=== PATIENT | male | born 1935 | race Caucasian/White ===

== ENCOUNTER 2019-09-10 14:37 | Inpatient (IN) | payer MEDICARE ==
[~2019-09-10] VITALS: Ht 175.3 cm; Wt 95.3 kg
--- OUTSIDE RECORDS SUMMARY | 2019-09-10 14:40 | XMS REPORT ---
Author Author [facility] Address Unknown Phone Unavailable Care Team Providers Care Card Maker Name Role Phone Unavailable Unavailable Payers Payer Name Policy Type Policy Number Effective Date Expiration Date Problems This patient has no known problems. Allergies, Adverse Reactions, Alerts Allergy Name Allergy Type Status Severity Reaction(s) Onset Date Inactive Date Treating Clinician Comments monosodium glutamate DA Active SV 2018-10-14 00:00:00 Penicillins DA Active MO 2010-04-02 00:00:00 Medications This patient has no known medications.
--- NOTE | 2019-09-10 15:10 | Diagnostic Imaging Report ---
Exam: Head CT without contrast History: Stroke symptoms, CVA Comparison studies: Head CT of is unavailable on the PACS for comparison the time of dictation. Technique: Axial images were obtained from the skull base to the vertex. Coronal and sagittal images reconstructed from the axial data. Dose modulation, iterative reconstruction, and/or weight based adjustment of the mA/kV was utilized to reduce the radiation dose to as low as reasonably achievable. Radiation dose: Total DLP: 832 mGy*cm. Estimated effective dose: DLP x 0.015 Intravenous contrast: None Findings: Scalp: No abnormalities. Bones: No fractures, blastic or lytic lesions. Brain sulci: Mildly prominent. Ventricles: Mild compensatory dilatation. No hydrocephalus. Extra-axial spaces: No masses, no fluid collection. Parenchyma: No abnormal densities. No mass, acute hemorrhage or cortical vascular insults. A few scattered hypodensities in the supratentorial white matter are nonspecific but most compatible with chronic small vessel ischemic changes. Sellar/suprasellar region: No abnormalities. Craniocervical junction: Patent foramen magnum. No Chiari one malformation. Incidental findings: Bilateral lens replacements related to previous cataract surgery. Atherosclerotic calcifications in the carotid siphons. IMPRESSION: No acute intracranial abnormalities. Chronic findings: 1. Mild age-related parenchymal volume loss. 2. Mild microvascular ischemic changes. Signed by: Dr. Jonathan Urena M.D. on 09/10/2019 3:06 PM
[2019-09-10 15:37] LABS: BASOPHILS % 0.7 % (0.0-1.0); EOSINOPHILS # (AUTO) 0.1 (0.0-0.4); EOSINOPHILS % 1.1 % (0.0-6.0); HEMOGLOBIN 16.2 g/dL (14.0-18.0); LYMPHOCYTES # (AUTO) 0.8 (1.0-3.2); LYMPHOCYTES % 14.4 % (18.0-39.1); MEAN CORPUSCULAR HEMOGLOBIN 31.7 pg (28-32); MEAN CORPUSCULAR HGB CONC 33.8 g/dL (31-35); MEAN CORPUSCULAR VOLUME 93.9 fL (81-99); MONOCYTES # (AUTO) 0.9 (0.2-0.8); NEUTROPHILS # (AUTO) 3.6 (2.1-6.9); NEUTROPHILS % 66.4 % (38.7-80.0); PLATELET COUNT 175 x10e3/uL (140-360); RED BLOOD COUNT 5.11 x10e6/uL (4.3-5.7); RED CELL DISTRIBUTION WIDTH 13.4 % (11.7-14.4)
[2019-09-10] MEDS ORDERED: FAMOTIDINE 20 MG/2 ML VIAL IV ONE (15:43)
[2019-09-10] MEDS ORDERED: SODIUM CHLORIDE 0.9% 1000ML 1,000 ML IV STA ×2 (15:43)
[2019-09-10] MEDS ORDERED: ASPIRIN 81 MG CHEW TAB PO ONE ×2 (15:43→15:46)
[2019-09-10 15:44] LABS: INR 1.07; PROTHROMBIN TIME 14.4 seconds (11.9-14.5)
[2019-09-10] MEDS ORDERED: FOLIC ACID 5 MG/ML VIAL IV ONE (15:45)
--- NOTE | 2019-09-10 15:45 | Diagnostic Imaging Report ---
Chest, PA and lateral. History: Stroke symptoms. Comparison: None available. Discussion: The cardiomediastinal silhouette and pulmonary vasculature are within normal limits. The aorta has a tortuous appearance. The lungs are clear without evidence of consolidation or effusion. A calcified granuloma is present in the right midlung zone. There is no acute osseous abnormalities. IMPRESSION: No radiographic evidence of acute cardiopulmonary abnormality. Signed by: Grady Flores MD on 09/10/2019 3:42 PM
[2019-09-10 15:54] LABS: ALBUMIN 3.7 g/dL (3.5-5.0); ALBUMIN/GLOBULIN RATIO 1.3 (0.8-2.0); ANION GAP 13.3 mmol/L (8-16); CALCIUM 9.2 mg/dL (8.4-10.2); CREATININE, SERUM 1.7 mg/dL (0.72-1.25); POTASSIUM 4.3 mmol/L (3.5-5.1)
[2019-09-10] MEDS ORDERED: SODIUM CHLORIDE 0.9% 1000ML 1,000 ML IV SCH (16:00)
[2019-09-10] MEDS ORDERED: FAMOTIDINE 20 MG/2 ML VIAL IV SCH ×2 (16:00→17:00)
[2019-09-10] MEDS ORDERED: FOLIC ACID 5 MG/ML VIAL IV SCH (16:00)
[2019-09-10 16:01] LABS: CREATINE KINASE MB 4.1 ng/mL (0-5.0)
[2019-09-10 16:02] LABS: MAGNESIUM 1.9 MG/DL (1.3-2.1)
[2019-09-10 16:22] LABS: THYROID STIMULATING HORMONE 6.066 uIU/mL (0.350-4.940)
[2019-09-10 16:49] LABS: BILIRUBIN,URINE NEGATIVE (NEGATIVE); CLARITY,URINE SL CLOUDY (CLEAR); COLOR,URINE YELLOW (YELLOW); KETONES,URINE NEGATIVE (NEGATIVE); LEUKOCYTE ESTERASE ,URINE TRACE (NEGATIVE); NITRITE,URINE NEGATIVE (NEGATIVE); PROTEIN,URINE DIPSTICK NEGATIVE (NEGATIVE); URINE UROBILINOGEN 0.2 mg/dL (0.2 - 1)
[2019-09-10] MEDS ORDERED: APIXAB 2.5 MG TABLET PO SCH (17:00)
[2019-09-10] MEDS ORDERED: FOLIC ACID MDV 1 MG in SODIUM CHLORIDE 0.9% 50ML 50 ML IV SCH (17:00)
[2019-09-10 17:02] LABS: WBC,URINE (MAN) 0-5 /HPF (0-5)
--- NOTE | 2019-09-10 17:07 | Diagnostic Imaging Report ---
EXAMINATION: MRI of the brain without contrast. HISTORY: Stroke symptoms, evaluate for acute cerebrovascular accident COMPARISON: Head CT 09/10/[address] 04/26/2017 TECHNIQUE: Sagittal T2; axial DWI, T2, FLAIR, T1-IR, T2 gradient echo; coronal FLAIR. FINDINGS: Parenchyma: 1. Few scattered and mildly confluent periventricular white matter T2 and FLAIR hyperintense foci, most likely nonspecific chronic microvascular ischemic changes. 2. No mass, hemorrhage, acute or chronic infarcts. Skull: Unremarkable. Vessels: Expected flow voids present in the major arteries and dural sinuses. Extra-axial spaces: No abnormal signal intensity or mass effect. Brain volume: Within normal limits for age. Ventricles: No hydrocephalus or displacement. Foramen magnum: Unremarkable. Sella: Unremarkable. Paranasal / mastoid sinuses: No significant inflammatory disease. IMPRESSION: 1. No acute infarct. 2. Mild chronic microvascular ischemic changes, stable compared to prior studies. Signed by: Dr. Alexa Ríos M.D. on 09/10/2019 5:03 PM
--- NOTE | 2019-09-10 17:20 | NUR ---
SWALLOW TEST PERFORMED WITH PT PRIOR TO ADMINISTRATION OF ASA 81MG.
[2019-09-10] MEDS ORDERED: TERAZOSIN HCL1 MG PO (17:26)
[2019-09-10] MEDS ORDERED: CELEBREX100 MG PO (17:28)
[2019-09-10] MEDS ORDERED: DIGOXIN125 MCG PO (17:28)
[2019-09-10] MEDS ORDERED: ELIQUIS2.5 MG (17:28)
[2019-09-10] MEDS ORDERED: ATORVASTATIN CA20 MG PO (17:28)
[2019-09-10] MEDS ORDERED: LABETALOL HCL 5 MG/ML 20ML VIAL IV STA (18:03)
[2019-09-10] MEDS ORDERED: LABETALOL HCL 100 MG TAB PO ONE (18:15)
[2019-09-10] MEDS ORDERED: LABETALOL HCL 5 MG/ML 20ML VIAL IV ONE ×2 (18:15→19:00)
[2019-09-10 20:48] VITALS: BP 162/97
[2019-09-11] MEDS ORDERED: ASPIRIN 81 MG ENTERIC COATED PO SCH (09:00)
--- NOTE | 2019-09-12 03:30 | Discharge Summary ---
PRIMARY CARE DOCTOR: Saravanan Rodriguez MD FINAL DIAGNOSIS: Transient ischemic attack. SECONDARY DIAGNOSES: 1. Atrial fibrillation. 2. Stage 3 chronic kidney disease. 3. Dyslipidemia. CONSULTANTS: None. PROCEDURES/STUDIES PERFORMED: CT and brain MRI did not show any acute stroke. HISTORY: Per H and P. HOSPITAL COURSE: I had a very long conversation with both the patient and his at the bedside. The patient is on appropriate medication, which is Eliquis 2.5 mg twice a day for his atrial fibrillation and stroke prophylaxis. Dosage is reduced due to the fact that his creatinine is greater than 1.5 and his age is greater than 80 years old. However, despite chronically he has failed Eliquis, the patient reports being compliant with it. Interestingly, his PT and PTT are normal which potentially is suggesting that he is somewhat resistant to Eliquis, despite being on the appropriate dosage. Of note, his hemoglobin is also normal at 16. Again, I had a very long conversation with both of them. Currently, the patient is back to his baseline. Therefore, the patient can be discharged home. The patient is aware that if symptoms comes back that he needs to return to the emergency room. However, potentially even if he comes back within the tPA window, tPA is likely contraindicated since the fact that he is on Eliquis. At this time, I am proposing increasing his Eliquis dose to 5 mg in the morning and 2.5 mg at night. They understand that this is an off-label use. The patient will follow up with his curing machine operator, Dr. Kramer next day to get his opinion. CONDITION ON DISCHARGE: Improved. DISCHARGE MEDICATIONS: Please see medication reconciliation form. MD SCOOBY Aguilar/MONIKA /[id number] cc: [facility]
== END 2019-09-10 21:05 | disposition home or self-care (01) | DRG 69 ==
LOC: ER 14:37 → ERHOLD 15:49
PROVIDERS: ADMIT Internal Medicine; ATTEND Internal Medicine
DX: G45.9 Transient cerebral ischemic attack, unspecified (principal); I48.91 Unspecified atrial fibrillation; E78.5 Hyperlipidemia, unspecified; Z79.01 Long term (current) use of anticoagulants; I12.9 Hypertensive chronic kidney disease with stage 1 through stage 4 chronic kidney disease, or unspecified chronic kidney disease; N18.3 Chronic kidney disease, stage 3 (moderate)
CPT/HCPCS: 36415; 70450; 70551; 71046; 80053; 80162; 81001; 82550; 82553; 83690; 83735; 83880; 84443; 84484; 85025; 85610; 85730; 93005; 99284; J7030

== ENCOUNTER → 2022-04-01 | Day surgery (SDC) | payer MEDICARE ==
[2022-03-29 13:06] LABS: BASOPHILS # (AUTO) 0.1 (0.0-0.1); BASOPHILS % 0.8 % (0.0-1.0); EOSINOPHILS # (AUTO) 0.3 (0.0-0.4); EOSINOPHILS % 3.8 % (0.0-6.0); HEMATOCRIT 46.4 % (38.2-49.6); HEMOGLOBIN 15.1 g/dL (14.0-18.0); LYMPHOCYTES # (AUTO) 1.2 (1.0-3.2); LYMPHOCYTES % 15.8 % (18.0-39.1); MEAN CORPUSCULAR HEMOGLOBIN 32.1 pg (28-32); MEAN CORPUSCULAR HGB CONC 32.5 g/dL (31-35); MEAN CORPUSCULAR VOLUME 98.7 fL (81-99); MONOCYTES # (AUTO) 0.9 (0.2-0.8); MONOCYTES % 11.9 % (4.4-11.3); NEUTROPHILS % 67.4 % (38.7-80.0); PLATELET COUNT 212 x10e3/uL (140-360); RED CELL DISTRIBUTION WIDTH 13.5 % (11.7-14.4)
[~2022-04-01] MED LIST: ATORVASTATIN CA20 MG PO; CELEBREX100 MG PO; COREG3.125 MG PO; DIGOXIN125 MCG PO; ELIQUIS2.5 MG; LIDOCAINE HCL 2% LOCAL INJ 5 ML SDV VIAL INJ ONE; LOSARTAN POTASS25 MG PO; PREVAGEN PO; PROPOFOL IV EMULSION 10 MG/ML 20 ML VIAL ONE; TERAZOSIN HCL1 MG PO
[2022-04-01 14:05] VITALS: BP 143/77
== END | disposition home or self-care (01) ==
LOC: OR 10:35
PROVIDERS: ATTEND Internal Medicine Gastroenterology
DX: K29.70 Gastritis, unspecified, without bleeding (principal); D12.0 Benign neoplasm of cecum; D12.2 Benign neoplasm of ascending colon; D12.4 Benign neoplasm of descending colon; K29.80 Duodenitis without bleeding; K26.9 Duodenal ulcer, unspecified as acute or chronic, without hemorrhage or perforation; K20.90 Esophagitis, unspecified without bleeding; K44.9 Diaphragmatic hernia without obstruction or gangrene; K22.89 Other specified disease of esophagus; K59.09 Other constipation; K57.30 Diverticulosis of large intestine without perforation or abscess without bleeding; K64.8 Other hemorrhoids; I10 Essential (primary) hypertension; E78.5 Hyperlipidemia, unspecified; I25.10 Atherosclerotic heart disease of native coronary artery without angina pectoris; I48.91 Unspecified atrial fibrillation; Z88.0 Allergy status to penicillin; Z91.048 Other nonmedicinal substance allergy status; Z01.810 Encounter for preprocedural cardiovascular examination; Z01.812 Encounter for preprocedural laboratory examination; Z20.822 Contact with and (suspected) exposure to COVID-19; Z79.02 Long term (current) use of antithrombotics/antiplatelets; Z79.899 Other long term (current) drug therapy
CPT/HCPCS: 36415; 43239; 45385; 84152; 85025; 93005; C9113; J2001; J2704; U0002; 45378

== ENCOUNTER → 2022-05-18 | Day surgery (SDC) | payer MEDICARE ==
[2022-05-13 12:25] LABS: BASOPHILS # (AUTO) 0.1 (0.0-0.1); BASOPHILS % 0.8 % (0.0-1.0); EOSINOPHILS # (AUTO) 0.3 (0.0-0.4); EOSINOPHILS % 3.3 % (0.0-6.0); HEMATOCRIT 43.6 % (38.2-49.6); LYMPHOCYTES # (AUTO) 1.1 (1.0-3.2); LYMPHOCYTES % 13.5 % (18.0-39.1); MEAN CORPUSCULAR HEMOGLOBIN 31.8 pg (28-32); MEAN CORPUSCULAR HGB CONC 32.1 g/dL (31-35); MEAN CORPUSCULAR VOLUME 99.1 fL (81-99); MONOCYTES # (AUTO) 0.9 (0.2-0.8); MONOCYTES % 11.4 % (4.4-11.3); NEUTROPHILS # (AUTO) 5.5 (2.1-6.9); NEUTROPHILS % 70.5 % (38.7-80.0); PLATELET COUNT 205 x10e3/uL (140-360); RED CELL DISTRIBUTION WIDTH 13.6 % (11.7-14.4)
[~2022-05-18] MED LIST changes: +BUPIVACAINE 0.25% 30ML SDV ONE; +BUPIVACAINE HC 0.75% PF 10ML VIAL INJ ONE; +HYDRALAZINE HCL 20 MG/ML VIAL ONE; +LIDOCAINE HCL 1% LOCAL INJ 20 ML VIAL ONE; -LIDOCAINE HCL 2% LOCAL INJ 5 ML SDV VIAL INJ ONE; +POVIDONE IODINE 0.05% 0.05 % ML PO ONE; +ROPIVACAINE 0.5% 5 MG/ML 30 ML SDV ONE
[2022-05-18 13:35] VITALS: BP 164/84
== END | disposition home or self-care (01) ==
LOC: OR 09:56
PROVIDERS: ATTEND Orthopaedic Surgery
DX: G56.02 Carpal tunnel syndrome, left upper limb (principal); G47.33 Obstructive sleep apnea (adult) (pediatric); I10 Essential (primary) hypertension; E78.5 Hyperlipidemia, unspecified; Z88.0 Allergy status to penicillin; Z01.812 Encounter for preprocedural laboratory examination; Z01.818 Encounter for other preprocedural examination; Z20.822 Contact with and (suspected) exposure to COVID-19; Z79.02 Long term (current) use of antithrombotics/antiplatelets; Z79.899 Other long term (current) drug therapy
CPT/HCPCS: 0223U; 36415; 64721; 71046; 85025; J0360; J2001; J2704; J2795